=== PATIENT | female | born 1995 | race Caucasian/White ===

== ENCOUNTER 2017-10-01 02:40 | Emergency (ER) | payer SELFPAY ==
[~2017-10-01] VITALS: Ht 160 cm; Wt 103.6 kg
[2017-10-01 03:12] LABS: HEMOGLOBIN 12.6 G/DL (11.9-15.5); MCHC 34.1 G/DL (30.0-36.0); MCV 85.1 FL (83-99); PLATELET COUNT 274 K/uL (156-360); RBC DIS.WIDTH-CV 13.1 % (11.8-14.6); RBC DIS.WIDTH-SD 40.6 % (39-53); RED BLOOD COUNT 4.35 M/uL (3.80-5.20); WHITE BLOOD COUNT 14.4 K/uL (4.1-10.2)
[2017-10-01 03:28] LABS: CHLORIDE 106 mEq/L (99-109); POTASSIUM 3.6 mEq/L (3.7-5.4); SODIUM 139 mEq/L (136-147)
[2017-10-01 03:29] LABS: GLUCOSE 102 mg/dL (70-99)
[2017-10-01 03:33] LABS: CREATININE 0.8 mg/dL (0.6-1.3); GFR ESTIMATE (CALCULATED) > 59 mL/min/
[2017-10-01 03:34] LABS: UREA NITROGEN (BUN) 11 mg/dL (9-23)
[2017-10-01 03:39] LABS: TROP-I INTERPRETATION NEGATIVE; TROPONIN-I < 0.01 ng/mL (0.0-0.30)
[2017-10-01 07:40] LABS: D-DIMER ELISA < 150.00 ng/mLDDU (<230)
[2017-10-01 08:23] VITALS: BP 97/73
== END 2017-10-01 08:24 | disposition home or self-care (01) ==
LOC: EME 02:40
DX: R00.2 Palpitations (principal); F41.9 Anxiety disorder, unspecified; R07.89 Other chest pain; R42 Dizziness and giddiness; M79.604 Pain in right leg; Z82.49 Family history of ischemic heart disease and other diseases of the circulatory system; Z87.891 Personal history of nicotine dependence
CPT/HCPCS: 71046; 80048; 84484; 85027; 85379; 93005; 93971; 99281; 99283